=== PATIENT | female | born 1950 | race Caucasian/White ===

== ENCOUNTER 2024-09-27 06:34 | Day surgery (SDC) | payer MEDICARE, OTHER, SELFPAY ==
[2024-09-27 12:09] LABS: Glucose - Point of Care 126 mg/dl (70-99)
== END 2024-09-27 14:28 | disposition home or self-care (01) ==
LOC: GI 06:34
PROVIDERS: ATTENDING PHYSICIAN Internal Medicine
DX: Z12.11 Encounter for screening for malignant neoplasm of colon (principal); K64.9 Unspecified hemorrhoids; K57.30 Diverticulosis of large intestine without perforation or abscess without bleeding; D12.3 Benign neoplasm of transverse colon; D12.2 Benign neoplasm of ascending colon; D12.4 Benign neoplasm of descending colon; D12.5 Benign neoplasm of sigmoid colon; D12.1 Benign neoplasm of appendix
CPT/HCPCS: 45385; 82962; 88305

== ENCOUNTER → 2025-03-20 06:29 | Day surgery (SDC) | payer MEDICARE, OTHER, SELFPAY ==
[2025-03-20 12:23] LABS: Glucose - Point of Care 144 mg/dl (70-99)
== END ==
LOC: GI 06:29
PROVIDERS: ATTENDING PHYSICIAN Internal Medicine
DX: K29.70 Gastritis, unspecified, without bleeding (principal); K21.00 Gastro-esophageal reflux disease with esophagitis, without bleeding; K44.9 Diaphragmatic hernia without obstruction or gangrene; R63.4 Abnormal weight loss; K30 Functional dyspepsia; R14.0 Abdominal distension (gaseous)
CPT/HCPCS: 43239; 82962; 88305; 88342